=== PATIENT | female | born 1965 | race Two or more races ===

== ENCOUNTER 2025-07-09 09:43 | Outpatient (CLI) | payer OTHER | END 2025-07-09 09:45 | disposition home or self-care (01) | LOC: SONOGRAMA 09:43 | PROVIDERS: ATTEND Pathology Anatomic Pathology & Clinical Pathology | DX: D34 Benign neoplasm of thyroid gland (principal); E07.89 Other specified disorders of thyroid; R22.1 Localized swelling, mass and lump, neck ==